=== PATIENT | male | born 1950 | race Caucasian/White ===

== ENCOUNTER 2025-05-01 18:01 | Inpatient (IN) | payer MEDICARE, SELFPAY ==
[2025-05-01] VITALS (8 sets, daily range): BP systolic 150–177; BP diastolic 65–79; PULSE 64–74; RESP 20–25; TEMP 36.8–37; O2SAT 94–100
--- NOTE | ~2025-05-01 | CT_ITS ---
CT brain wo con Ordering provider: James Vaughn MD History: 74 years Male with . slurred speech . Comparison: None. Technique: CT of the head without contrast. Radiation reduction technique utilized. The dose-length p roduct was 681 mGy-cm.3 FINDINGS: BRAIN PARENCHYMA AND CSF SPACES: Mild leukoaraiosis and diffuse cortical atrophy. Mild atheromatous d isease. No midline shift, mass effect or hemorrhage. The brain parenchyma and CSF spaces are otherwi se normal. VISUALIZED PARANASAL SINUSES: Right maxillary and frontal sinus disease. Otherwise, the Well aerated. MASTOIDS: Well aerated. BONES: The bones appear intact. SOFT TISSUES: Visualized nasopharynx is normal. Superficial soft tissues are normal. IMPRESSION: No acute intracranial findings. Reviewed, dictated and finalized at location A.
--- NOTE | ~2025-05-01 | XR_ITS ---
XR chest 1V portable Ordering provider: James Vaughn MD History: 74 years Male with . slurred speech . Comparison: January 15, 2012 FINDINGS: MEDIASTINUM: The cardiac silhouette is not enlarged. Postoperative changes in the mediastinum. LUNGS: No infiltrates, effusions or pneumothorax. OTHER: No free air under the diaphragm. Degenerative spine. IMPRESSION: No acute cardiopulmonary pathology. Reviewed, dictated and finalized at location A.
--- NOTE | 2025-05-01 18:01 | ECG_ITS ---
Test Date: 2025-05-01 18:21:18 Measurements Intervals [place] Rate: 71 P: 84 ME: 145 QRS: 63 QRSD: 117 T: 131 QT: 410 QTc: 447 Interpretive Statements SINUS RHYTHM MODERATE T-WAVE ABNORMALITY, CONSIDER LATERAL ISCHEMIA [-0.1+ mV T-WAVE IN I/aVL/V5/V6] No previous ECG available for comparison Electronically Signed On 05-01-2025 22:34:31 CDT by Isabel Johnson M.D.
[2025-05-01 18:19] LABS: Hematocrit 21.3 % (42.0-52.0); Immature Granulocyte Percent A 0.4 % (0-0.5); Lymphocytes Absolute Auto 2.74 K/mm3 (0.9-3.2); Mean Corpuscular HGB Conc 31.5 g/dl (32-36); Mean Corpuscular Hemoglobin 30.6 pg (26-34); Mean Corpuscular Volume 97.3 fl (80-100); Nucleated Red Blood Cells Absolute Auto 0.000 K/mm3 (0.0-0.012); Nucleated Red Blood Cells Perc 0.0 % (0.0-0.2); Platelet Count Result 407 k/mm3 (150-375); Red Blood Count 2.19 M/mm3 (4.6-6.20); White Blood Count 10.1 K/mm3 (4.5-10.0)
--- NOTE | 2025-05-01 18:20 | ED_ITS ---
HPI - Neuro Symptoms/Deficit General Chief Complaint: Suspected CVA Stated Complaint: TIA VS CVA History of Present Illness HPI Narrative: This is a 74-year-old male presenting to the ED as a stroke activation from EMS. The patient states that for the last week he has been feeling under the weather like he has a virus with body aches and weakness. Earlier today he developed nausea vomiting and diarrhea. Patient noticed that the vomiting and diarrhea were very dark. The patient went to take a shower prior to arrival and his heard a thump from downstairs. When she went upstairs they found him leaning against the counter. He was drooling and could not answer questions appropriately. She did not see any facial droop or unilateral weakness when prompted by 911. By time EMS arrived his symptoms had resolved he had returned to his baseline mental status. Last known normal 5:00 p.m.. No history of CVA. No use of blood thinners or anticoagulation. Patient drinks alcohol approximately 5 times per week. He states he has around 3 drinks a night. 1 or 2 manhattans/old fashioneds and then a glass of wine when he gets home. No history of alcoholic liver disease or cirrhosis. Related Data Allergies Allergy/AdvReac Type Severity Reaction Status Date / Time ampicillin Allergy Unknown Unknown Verified 11/25/24 11:17 [facility] Past Medical History Medical History CAD (coronary artery disease) Erectile dysfunction Essential (primary) hypertension Mixed hyperlipidemia Surgical History Surgical History Hx of CABG double bypass in 2001 - Dr Arriola Hx of heart bypass surgery (~1996) dbl bypass Family History Family History Mother Hypertension Father Family history of heart disease in male family member before age 55 Social History Social History Social History: Patient is , he lives with his Corazon in [place]. 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 Smoking status: Never smoker Alcohol intake: current Exam 2 Narrative: APPEARANCE: No apparent distress. Head: atraumatic. EYES: EOMI, NOSE: Atraumatic NECK: Trachea midline RESPIRATORY: No increased rate of breathing clear to auscultation CARDIOVASCULAR: RRR, no peripheral edema ABDOMINAL: Non-distended soft nontender Rectal Exam: Melanotic stool, Hemoccult positive MUSCULOSKELETAl: No obvious deformities NEURO: Alert. Cranial nerves 2-12 grossly intact. Sensation light touch, motor function cerebellar function intact for 4 extremities. Gait exam was normal. SKIN:: Warm, dry. Normal color PSYCHIATRIC: Normal affect NIH Stroke Scale/Score (NIHSS) from [facility] [facility] on 05/01/2025 All calculations should be rechecked by clinician prior to use RESULT SUMMARY: 0 points NIH Stroke Scale INPUTS: 1A: Level of consciousness ?> 0 = Alert; keenly responsive 1B: Ask month and age ?> 0 = Both questi ons right 1C: 'Blink eyes' & 'squeeze hands' ?> 0 = Performs both tasks 2: Horizontal extraocular movements ?> 0 = Normal 3: Visual plaza ?> 0 = No visual loss 4: Facial palsy ?> 0 = Normal symmetry 5A: Left arm motor drift ?> 0 = No drift for 10 seconds 5B: Right arm motor drift ?> 0 = No drif t for 10 seconds 6A: Left leg motor drift ?> 0 = No drift for 5 seconds 6B: Right leg motor drift ?> 0 = No drif t for 5 seconds 7: Limb Ataxia ?> 0 = No ataxia 8: Sensation ?> 0 = Normal; no sensory l oss 9: Language/aphasia ?> 0 = Normal; no ap hasia 10: Dysarthria ?> 0 = Normal 11: Extinction/inattention ?> 0 = No abn ormality Course Vital Signs Vital signs: Vital Signs Pulse Rate 71 05/01/25 18:16 Respiratory Rate 21 H 05/01/25 18:16 Blood Pressure 177/65 H 05/01/25 18:16 Pulse Oximetry 95 05/01/25 18:16 Pulse Rate 72 05/01/25 18:18 Respiratory Rate 25 H 05/01/25 18:18 Blood Pressure 177/65 H 05/01/25 18:18 Pulse Oximetry 94 05/01/25 18:18 Oxygen Delivery Room Air 05/01/25 18:18 MDM - Neuro Symptoms/Deficit MDM Narrative Medical decision making narrative: -Course: 74-year-old male presenting as a stroke alert from EMS. LKK 5pm. Patient has an NIH of 0 and after obtaining a thorough history and physical and I have less concern for CVA. More likely hypoperfusion/vagal response from GI bleed/losses. Patient's hemoglobin is now 6.7 from a baseline of 15.0 six months ago. Patient noted to have possible coffee-ground emesis and home and has melanotic stools on digital rectal exam. No history of anticoagulation or blood thinners. No history of liver cirrhosis although he does drink a fair amount of alcohol. Patient is being transfused [address] Morin was consulted as I am concerned for upper GI bleeding. Patient will be admitted the hospital for further evaluation. -DDX includes but is not limited to: Viral gastroenteritis, upper GI bleed, CVA/TIA, symptomatic anemia -Co-morbidities complicating care: Coronary artery disease, hypertension -Hx from independent Sources: , EMS -Independent interpretation of studies: White count 10.1. Hemoglobin 6.7. Baseline hemoglobin 15 in October this year. Metabolic panel showed BUN 42 from a baseline of around 15. Creatinine at baseline. Initial lactic 3.2. Repeat pending. CT brain unremarkable. Independent EKG interpretation: Rhythm [sinus], Rate [71], [place] -[normal], NE -[normal], QRS [narrow], QTC [normal], T waves -[negative for concerning inversions], ST Segments - [Negative for concerning elevations] Final interpretations: [Normal Sinus Rhythm] Lab Data 05/01/25 18:07 05/01/25 18:07 Labs: Lab Results 05/01/25 05/01/25 05/01/25 Range/Units 18:07 19:15 20:31 WBC 10.1 H (4.5-10.0) K/mm3 RBC 2.19 L (4.6-6.20) M/mm3 Hgb 6.7 L* (14.0-18.0) g/dL Hct 21.3 L (42.0-52.0) % MCV 97.3 (80-100) fl MCH 30.6 (26-34) pg MCHC 31.5 L (32-36) g/dl RDW 15.6 H (11.5-14.5) % Plt Count 407 H (150-375) k/mm3 MPV 10.9 H (7.4-10.4) fl Immature Gran % (Auto) 0.4 (0-0.5) % Neut % (Auto) 63.2 (45.5-73.1) % Lymph % (Auto) 27.3 (18.3-44.2) % [place] % (Auto) 8.2 (2.6-8.5) % Eos % (Auto) 0.3 (0-4.4) % Baso % (Auto) 0.6 (0.2-1.2) % Lymph # (Auto) 2.74 (0.9-3.2) K/mm3 [place] # (Auto) 0.8 H (0.1-0.6) K/mm3 Eos # (Auto) 0.0 (0-0.3) K/mm3 Baso # (Auto) 0.1 (0.0-0.1) K/mm3 Abs Immat Gran (auto) 0.04 H (0.00-0.031) K/mm3 Absolute Neuts (auto) 6.4 (1.3-6.7) K/mm3 Absolute Nucleated RBC 0.000 (0.0-0.012) K/mm3 Nucleated RBC % 0.0 (0.0-0.2) % PT 15.0 H (11.1-14.7) Seconds INR 1.2 APTT 26.1 (22.3-36.8) Seconds Sodium 139 (137-145) mmol/L Potassium 3.7 (3.4-5.0) mmol/L Chloride 106 (98-107) mmol/L Carbon Dioxide 25 (22-30) mmol/L Anion Gap 8 (4-12) mmol/L BUN 42 H (9-20) mg/dL Creatinine 1.24 (0.7-1.3) mg/dL Estim Creat Clear Calc 48 ml/min Estimated GFR 57 L (59 - ) Glucose 150 H (65-110) mg/dL Lactic Acid 3.2 H Pending (0.7-2.0) mmol/L Calcium 9.8 (8.4-10.2) mg/dL Total Bilirubin 0.5 (0.2-1.3) mg/dL AST 42 (17-59) U/L ALT 22 (6-50) U/L Alkaline Phosphatase 45 (38-126) U/L Troponin I 0.017 (0.000-0.034) ng/mL Total Protein 5.6 L (6.3-8.2) g/dL Albumin 3.0 L (3.5-5.1) g/dL Blood Type A Positive Antibody Screen Negative Crossmatch See Detail Discharge Plan Discharge Clinical Impression: Acute upper gastrointestinal bleeding, Anemia Patient Disposition: Home Condition: Stable Instructions: Antibiotic Form Patient Language: Romanian Prescriptions: No Action aspirin 81 mg tablet,delayed release (DR/EC) 81 mg PO DAILY Qty: 90 0RF tadalafil 5 mg tablet 5 mg PO DAILY PRN (Reason: sexual activity) Qty: 90 0RF ergocalciferol (vitamin D2) 1,250 mcg (50,000 unit) capsule 1,250 mcg PO WEEKLY Qty: 12 1RF lisinopril 40 mg tablet 40 mg PO DAILY Qty: 90 1RF atorvastatin 80 mg tablet 80 mg PO DAILY Qty: 90 0RF fenofibrate nanocrystallized [Tricor] 145 mg tablet 145 mg PO DAILY Qty: 90 0RF Rx Instructions: ] metoprolol tartrate 100 mg tablet 100 mg PO BID Qty: 180 0RF Follow-up/Referrals: Vanessa Ding DO [Primary Care Provider] -
[2025-05-01 18:32] LABS: Alanine Aminotransferase 22 U/L (6-50); Albumin Level 3.0 g/dL (3.5-5.1); Alkaline Phosphatase 45 U/L (38-126); Anion Gap 8 mmol/L (4-12); Aspartate Amino Transferase 42 U/L (17-59); Bilirubin,Total 0.5 mg/dL (0.2-1.3); Blood Urea Nitrogen 42 mg/dL (9-20); Calcium 9.8 mg/dL (8.4-10.2); Carbon Dioxide 25 mmol/L (22-30); Chloride 106 mmol/L (98-107); Estimated CRCL calculation 48 ml/min; Estimated Glomerular Filt Rate 57; Glucose 150 mg/dL (65-110); Potassium 3.7 mmol/L (3.4-5.0); Sodium 139 mmol/L (137-145); Total Protein 5.6 g/dL (6.3-8.2)
[2025-05-01 18:33] LABS: INR 1.2; Partial Thromboplastin Time 26.1 Seconds (22.3-36.8); Prothrombin Time 15.0 Seconds (11.1-14.7)
[2025-05-01 18:39] LABS: Hemoglobin 6.7 g/dL (14.0-18.0)
[2025-05-01 18:42] LABS: Troponin I 0.017 ng/mL (0.000-0.034)
[2025-05-01] MEDS: TUBING, BLOOD SET 1 EACH XX (21:02)
[2025-05-01] MEDS: SODIUM CHLORIDE 0.9% IV 250 ML 30 ML IV CONT (21:02)
[2025-05-02] VITALS (16 sets, daily range): BP systolic 115–204; BP diastolic 59–95; PULSE 57–78; RESP 14–20; TEMP 36.6–37.2; O2SAT 95–100; BMI 21.9
[2025-05-02] MEDS: METOPROLOL TARTRATE 50 MG TAB 100 MG PO ×3 (00:48→20:22)
--- NOTE | 2025-05-02 02:50 | P.HP_ITS ---
H&P: HPI History of Present Illness Date/Time: 05/02/25 02:00 Chief Complaint: Weakness. Narrative: This is a 74-year-old male with coronary artery disease status post CABG in 2001, hypertension, and dyslipidemia who presented to the emergency department via EMS from home for evaluation of weakness. He has been feeling under the weather for nearly a week in presumed he had some sort of virus with symptoms to include postnasal drip, occasional cough, and sinus congestion. He has been taking Zyrtec with some improvement. The last couple of days he has developed diarrhea which she describes as very dark in color. Yesterday morning he developed nausea and reports having a couple of episodes of dark, almost black colored emesis. He rested for several hours and felt a bit better and was able to take a shower however while in the shower he began to feel very weak. He then exited the shower and states that he was feeling very weak and lightheaded. heard him stumbling in the bathroom and when she entered he was leaning on the counter and he was not able to answer her questions appropriately or follow commands. She was concerned for possible stroke and called 911. Once the medics got to the home and got him in the ambulance he was feeling back to normal. There were no reports of facial droop or focal weakness. He also denies syncope, vertigo, visual changes, fever, epigastric and abdominal pain, bloating, belching, indigestion symptoms, chest pain, and shortness of breath. He takes a baby aspirin daily and denies NSAID use. He drinks approximately 3 alcoholic beverages, about 5 days a week and has 2 to 3 cups of coffee a day. He has lost about 15 lb in the last several months which has been unintentional. No history of her or peptic ulcers. He has never had a colonoscopy. No known history of liver disease. In the ED: Blood pressure is 177/65 and has been as high as 202/95. Patient states he has severe white coat hypertension and notes that his blood pressures at home are consistently in the 120s to 130s over 70s to 80s systolic at home. Labs are significant for WBC count of 10.1, hemoglobin 6.7, hematocrit 21.3, platelet 407, PT 15.0, INR 1.2, BUN 42, creatinine 1.24, glucose 150, lactic acid 3.2, total protein 5.6, albumin 3.0. Head CT and chest x-ray showed no acute findings. He was given a unit of packed red blood cells and is being admitted in this setting for close monitoring and GI consultation. Review of Systems Review of Systems: 12 systems were reviewed and are negativ e except for as per HPI. [facility] Past Medical History Medical History (Updated 05/02/25 @ 05:00 by Tiara Poon PA-C) Coronary artery disease Erectile dysfunction Essential (primary) hypertension Mixed hyperlipidemia Surgical History Surgical History (Updated 05/02/25 @ 04:54 by Tiara Poon PA-C) History of cholecystectomy History of cardiac catheterization History of coronary artery stent placement History of coronary artery bypass graft x 2 (2001) Family History Family History Mother Hypertension Father Family history of heart disease in male family member before age 55 Social History Social History (Updated 05/02/25 @ 04:55 by Tiara Poon PA-C) Social History: Surrogate medical decision maker: Corazon Mendes, spouse. Code status: Full code. Smoking status: Never smoker Second hand tobacco smoke exposure: No Alcohol intake: current Drinks per week: 15 Substance use: never Substance use type: does not use Do You Feel Safe in your Home?: Yes Lack of Transportation: No Lack of Food: Never True Current Housing: I Have Housing Concerned About Future Housing: No Difficulty Paying Gas/Electric Bills: No Difficulty Paying for Meds: No Currently Unemployed: No Education: Decline to Answer Difficulty w/ Childcare or Family Care: No Additional living arrangements comments: . Lives in [place] with his . 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 Spiritual care concerns: No Meds Home Medications and Allergies Home Medications ?Medication ?Instructions ?Recorded ?Confirmed ?Type aspirin 81 mg tablet,delayed 81 mg PO DAILY #90 tabs 01/06/20 05/02/25 Rx release lisinopril 40 mg tablet 40 mg PO DAILY #90 tabs 01/13/25 05/02/25 Rx metoprolol tartrate 100 mg tablet 100 mg PO BID #180 tabs 04/14/25 05/02/25 Rx atorvastatin 80 mg tablet 80 mg PO HS 05/02/25 05/02/25 History fenofibrate nanocrystallized 145 145 mg PO HS 05/02/25 05/02/25 History mg tablet (Tricor) Allergies Allergy/AdvReac Type Severity Reaction Status Date / Time ampicillin Allergy Unknown Unknown Verified 11/25/24 11:17 Vital Signs Vital Signs - 24 hr 05/01/25 18:16 05/01/25 18:17 05/01/25 18:18 Temperature Pulse Rate 71 74 72 Respiratory Rate 21 H 24 H 25 H Blood Pressure 177/65 H 177/65 H 177/65 H Pulse Oximetry 95 97 94 Oxygen Delivery Room Air 05/01/25 20:55 05/01/25 21:15 05/01/25 22:15 Temperature 98.4 F 98.6 F 98.3 F Pulse Rate 64 64 65 Respiratory Rate 20 24 H 25 H Blood Pressure 150/73 H 162/70 H 162/66 H Pulse Oximetry 100 98 100 Oxygen Delivery 05/01/25 23:12 05/01/25 23:50 05/02/25 00:00 Temperature 98.3 F 98.1 F Pulse Rate 65 68 78 Respiratory Rate 24 H 24 H 20 Blood Pressure 164/79 H 202/95 H Pulse Oximetry 100 100 100 Oxygen Delivery 05/02/25 00:48 Temperature Pulse Rate 78 Respiratory Rate Blood Pressure Pulse Oximetry Oxygen Delivery Exam Narrative: General: Nontoxic-appearing male sitting up in bed in no acute distress. Weight: 73.5 kg. BMI: 22.0. HEENT: PERRL, EOMI. Sclera anicteric. Oral mucosa moist. Neck: Supple. Respiratory: Lungs are clear to auscultation bilaterally. Cardiovascular: Regular rate and rhythm with S1-S2. Gastrointestinal: Abdomen is soft, nontender, and nondistended with positive bowel sounds. No guarding or rebound tenderness. Skin: Warm and dry. Extremities: No cyanosis, clubbing, or edema. Radial pulses 2+. Pedal pulses diminished. Neurological: Alert. Cranial nerves grossly intact. No gross focal deficits to casual conversation. Psychiatric: Pleasant and cooperative with normal mood and affect. Judgment and insight intact. H&P: Results Labs Labs: Short CBC 05/01/25 Range/Units 18:07 WBC 10.1 H (4.5-10.0) K/mm3 Hgb 6.7 L* (14.0-18.0) g/dL Hct 21.3 L (42.0-52.0) % Plt Count 407 H (150-375) k/mm3 BMP 05/01/25 18:07 Sodium 139 Potassium 3.7 Chloride 106 Carbon Dioxide 25 BUN 42 H Creatinine 1.24 Glucose 150 H Calcium 9.8 Cardiac Enzymes 05/01/25 Range/Units 18:07 Troponin I 0.017 (0.000-0.034) ng/mL Liver Function 05/01/25 Range/Units 18:07 Total Bilirubin 0.5 (0.2-1.3) mg/dL AST 42 (17-59) U/L ALT 22 (6-50) U/L Alkaline Phosphatase 45 (38-126) U/L Albumin 3.0 L (3.5-5.1) g/dL Impressions Head CT 05/01/25 18:32 IMPRESSION: No acute intracranial findings. Chest X-Ray 05/01/25 18:42 IMPRESSION: No acute cardiopulmonary pathology. Assessment and Plan Assessment and plan (1) Acute upper gastrointestinal bleeding: Code(s): K92.2 - Gastrointestinal hemorrhage, unspecified Status: Acute (2) Symptomatic anemia: Code(s): D64.9 - Anemia, unspecified Status: Acute (3) Near syncope: Code(s): R55 - Syncope and collapse Status: Acute (4) Essential (primary) hypertension: Code(s): I10 - Essential (primary) hypertension Status: Acute (5) Coronary artery disease: Code(s): I25.10 - Atherosclerotic heart disease of [place] coronary artery without angina pectoris Status: Acute Plan The patient presented to the emergency department for evaluation of weakness and dark emesis and stools as detailed in HPI. Labs, imaging, EKG, and all reports were personally reviewed. He has not been feeling well for approximately week and over the last 24 to 48 hours he has developed dark stools and had a couple of episodes of dark emesis as well. Presumed upper GI bleed with unclear source; he has historically not separate from GERD and denies recent symptoms of indigestion. The patient has lost approximately 15 lb unintentionally in the last couple of months which is concerning. He will be NPO after midnight for endoscopy later today. Continue pantoprazole 40 mg IV b.i.d.. He received a unit of packed red blood cells in the emergency department and a repeat hemoglobin was 8.1 and will be monitored frequently. was initially concerned for possible stroke as the patient was not answering her questions however it is likely that he was very close to having a syncopal episode and was just not perfusing well. Neither the patient's nor EMS noted any focal deficits and his neurologic exam is unremarkable today. Brain CT was also unremarkable and in my opinion there is no indication to pursue a stroke workup. Nonetheless he will be monitored on telemetry. Monitor orthostatic vital signs. His blood pressures have actually been running quite high however he states he has severe white coat hypertension that his blood pressures at home are always within normal limits. Continue antihypertensives and monitor closely. He has not had any episodes of exertional chest pain or shortness of breath. Hold aspirin for now given GI bleed and symptomatic anemia. Continue atorvastatin and beta-rachel. The rest of his home medications will be reviewed and resumed as appropriate. Findings and treatment plan were discussed with the patient. Questions were solicited and answered to satisfaction. The patient's medical management will be taken over by the hospitalist team in a.m. Quality VTE Prophylaxis VTE prophylaxis: mechanical ordered If No VTE Prophylaxis Answer both mechanical and pharmacologic: Reason no pharmacologic proph: medical contraindication (GI bleed) Hospitalist MIPS Advance Care Plan I have confirmed that the patient's Advanced Care Plan is present, code status is documented, or surrogate decision maker is listed in patient medical record.: Yes Medication Reconciliation I have utilized all available resources to obtain, update and review the patients current medications (includes all prescriptions, OTC, herbals, cannabis, and nutritional supplements).: Yes
[2025-05-02 03:21] LABS: Hematocrit 25.7 % (42.0-52.0); Hemoglobin 8.1 g/dL (14.0-18.0)
--- NOTE | 2025-05-02 04:41 | ADMGEN ---
This patient, Damien Mendes, was admitted to [facility] Surg Room 319-01 from ED with weakness and anemia with Hgb of 6.7. 1 unit of blood administered in the ED, Patient/family oriented to hospital policies and general routines including ID bracelet, bed and alarms, visiting hours, pain management, procedures, bathroom and other care routines, personal items, smoking policy, room service/diet, and visiting hours. Information on how to activate the Rapid Response Team has been discussed. Patient/Family are encouraged to report perceived risks to care and to ask questions if they do not understand what they are told or what they should do.
[2025-05-02 06:40] LABS: Hematocrit 24.7 % (42.0-52.0); Hemoglobin 7.8 g/dL (14.0-18.0); Mean Corpuscular HGB Conc 31.6 g/dl (32-36); Mean Corpuscular Hemoglobin 30.4 pg (26-34); Mean Corpuscular Volume 96.1 fl (80-100); Platelet Count Result 285 k/mm3 (150-375); Red Blood Count 2.57 M/mm3 (4.6-6.20); White Blood Count 9.9 K/mm3 (4.5-10.0)
[2025-05-02 06:59] LABS: Alanine Aminotransferase 16 U/L (6-50); Albumin Level 2.7 g/dL (3.5-5.1); Alkaline Phosphatase 40 U/L (38-126); Anion Gap 6 mmol/L (4-12); Aspartate Amino Transferase 36 U/L (17-59); Bilirubin,Total 0.8 mg/dL (0.2-1.3); Blood Urea Nitrogen 37 mg/dL (9-20); Calcium 9.1 mg/dL (8.4-10.2); Carbon Dioxide 25 mmol/L (22-30); Chloride 110 mmol/L (98-107); Estimated CRCL calculation 49 ml/min; Estimated Glomerular Filt Rate > 60; Glucose 87 mg/dL (65-110); Potassium 3.7 mmol/L (3.4-5.0); Sodium 141 mmol/L (137-145); Total Protein 5.2 g/dL (6.3-8.2)
[2025-05-02] MEDS: PANTOPRAZOLE SODIUM IV 40 MG VIAL IV PUSH ×2 (08:46→20:22)
--- NOTE | 2025-05-02 09:13 | PM.IMPN ---
Progress Note: A&P Assessment and Plan (1) Acute upper gastrointestinal bleeding: Code(s): K92.2 - Gastrointestinal hemorrhage, unspecified Status: Acute (2) Symptomatic anemia: Code(s): D64.9 - Anemia, unspecified Status: Acute (3) Near syncope: Code(s): R55 - Syncope and collapse Status: Acute (4) Essential (primary) hypertension: Code(s): I10 - Essential (primary) hypertension Status: Acute (5) Coronary artery disease: Code(s): I25.10 - Atherosclerotic heart disease of [place] coronary artery without angina pectoris Status: Acute Plan This is a 74-year-old male with coronary artery disease status post CABG in 2001, hypertension, and dyslipidemia who presented to the emergency department via EMS from home for evaluation of weakness. He has been feeling under the weather for nearly a week in presumed he had some sort of virus with symptoms to include postnasal drip, occasional cough, and sinus congestion. He has been taking Zyrtec with some improvement. The last couple of days he has developed diarrhea which she describes as very dark in color. Yesterday morning he developed nausea and reports having a couple of episodes of dark, almost black colored emesis. He rested for several hours and felt a bit better and was able to take a shower however while in the shower he began to feel very weak. He then exited the shower and states that he was feeling very weak and lightheaded. heard him stumbling in the bathroom and when she entered he was leaning on the counter and he was not able to answer her questions appropriately or follow commands. She was concerned for possible stroke and called 911. Once the medics got to the home and got him in the ambulance he was feeling back to normal. There were no reports of facial droop or focal weakness. He also denies syncope, vertigo, visual changes, fever, epigastric and abdominal pain, bloating, belching, indigestion symptoms, chest pain, and shortness of breath. He takes a baby aspirin daily and denies NSAID use. He drinks approximately 3 alcoholic beverages, about 5 days a week and has 2 to 3 cups of coffee a day. He has lost about 15 lb in the last several months which has been unintentional. No history of her or peptic ulcers. He has never had a colonoscopy. No known history of liver disease. In the ED: Blood pressure is 177/65 and has been as high as 202/95. Patient states he has severe white coat hypertension and notes that his blood pressures at home are consistently in the 120s to 130s over 70s to 80s systolic at home. Labs are significant for WBC count of 10.1, hemoglobin 6.7, hematocrit 21.3, platelet 407, PT 15.0, INR 1.2, BUN 42, creatinine 1.24, glucose 150, lactic acid 3.2, total protein 5.6, albumin 3.0. Head CT and chest x-ray showed no acute findings. He was given a unit of packed red blood cells and is being admitted in this setting for close monitoring and GI consultation. Dark stool presumably upper GI bleed on PPI b.i.d. with weight loss place patient is planned for EGD and colonoscopy on Sunday Near-syncope CT head was negative Acute blood loss. Hemoglobin down to 6.7. Baseline hemoglobin from October 2024 was 15. GI consulted for endoscopy evaluation received 1 unit of packed red blood cell. Repeat hemoglobin post transfusion was 8.1. Continue to monitor H&H Hypertension Hyperlipidemia Coronary artery disease status post CABG in 2001 DVT prophylaxis SCDs Code status full code Subjective Date/time seen: 05/02/25 09:13 Interval history: Chart reviewed. Feels okay. No lightheadedness or dizziness. Denies any abdominal pain. Review of Systems Review of Systems: All systems reviewed & are unremarkable except as noted in HPI and below Exam Narrative: General: Nontoxic-appearing male sitting up in bed in no acute distress. HEENT: PERRL, EOMI. Sclera anicteric. Oral mucosa moist. Neck: Supple. Respiratory: Lungs are clear to auscultation bilaterally. Cardiovascular: Regular rate and rhythm with S1-S2. Gastrointestinal: Abdomen is soft, nontender, and nondistended with positive bowel sounds. No guarding or rebound tenderness. Skin: Warm and dry. Extremities: No cyanosis, clubbing, or edema. Radial pulses 2+. Pedal pulses diminished. Neurological: Alert. Cranial nerves grossly intact. No gross focal deficits to casual conversation. Psychiatric: Pleasant and cooperative with normal mood and affect. Judgment and insight intact. Objective Data Vital Signs Vital Signs: Vital Signs - 24 hr 05/01/25 18:16 05/01/25 18:17 05/01/25 18:18 Temperature Pulse Rate 71 74 72 Respiratory Rate 21 H 24 H 25 H Blood Pressure 177/65 H 177/65 H 177/65 H Pulse Oximetry 95 97 94 Oxygen Delivery Room Air 05/01/25 20:55 05/01/25 21:15 05/01/25 22:15 Temperature 98.4 F 98.6 F 98.3 F Pulse Rate 64 64 65 Respiratory Rate 20 24 H 25 H Blood Pressure 150/73 H 162/70 H 162/66 H Pulse Oximetry 100 98 100 Oxygen Delivery 05/01/25 23:12 05/01/25 23:50 05/02/25 00:00 Temperature 98.3 F 98.1 F Pulse Rate 65 68 78 Respiratory Rate 24 H 24 H 20 Blood Pressure 164/79 H 202/95 H Pulse Oximetry 100 100 100 Oxygen Delivery 05/02/25 00:48 05/02/25 04:00 05/02/25 04:30 Temperature 98.2 F Pulse Rate 78 72 70 Respiratory Rate 20 Blood Pressure 186/77 H Pulse Oximetry 98 Oxygen Delivery 05/02/25 07:52 05/02/25 08:00 05/02/25 08:47 Temperature 98.9 F Pulse Rate 71 71 Respiratory Rate 20 Blood Pressure 115/59 L Pulse Oximetry 98 95 Oxygen Delivery Room Air Intake/Output Intake/Output: Intake & Output 04/29/25 04/30/25 05/01/25 05/02/25 23:59 23:59 23:59 23:59 Intake Total 600 0 Balance 600 0 Meds/Results Medications: Active Medications Generic Name Dose Route Start Last Admin Trade Name Dee Dee PRN Reason Stop Dose Admin Atorvastatin Calcium 80 mg 05/02/25 21:00 Atorvastatin 40 Mg Tablet PO HS JAH Fenofibrate 145 mg 05/02/25 21:00 Fenofibrate Nanocrystallized 145 Mg Tablet PO HS JAH Lisinopril 40 mg 05/02/25 09:00 05/02/25 08:46 Lisinopril 20 Mg Tablet PO 40 mg DAILY JAH Administration Metoprolol Tartrate 100 mg 05/02/25 09:00 05/02/25 08:47 Metoprolol Tartrate 50 Mg Tab PO 100 mg Q12HR JAH Administration Pantoprazole Sodium 40 mg 05/02/25 09:00 05/02/25 08:46 Pantoprazole Sodium Iv 40 Mg Vial IV PUSH 40 mg Q12HR JAH Administration Radiology Results: ITS Impressions Head CT 05/01/25 18:32 IMPRESSION: No acute intracranial findings. Chest X-Ray 05/01/25 18:42 IMPRESSION: No acute cardiopulmonary pathology. Labs Labs: Laboratory Results - last 24 hr 05/01/25 05/01/25 05/01/25 18:07 19:15 20:31 WBC 10.1 H RBC 2.19 L Hgb 6.7 L* Hct 21.3 L MCV 97.3 MCH 30.6 MCHC 31.5 L RDW 15.6 H Plt Count 407 H MPV 10.9 H Immature Gran % (Auto) 0.4 Neut % (Auto) 63.2 Lymph % (Auto) 27.3 [place] % (Auto) 8.2 Eos % (Auto) 0.3 Baso % (Auto) 0.6 Lymph # (Auto) 2.74 [place] # (Auto) 0.8 H Eos # (Auto) 0.0 Baso # (Auto) 0.1 Abs Immat Gran (auto) 0.04 H Absolute Neuts (auto) 6.4 Absolute Nucleated RBC 0.000 Nucleated RBC % 0.0 PT 15.0 H INR 1.2 APTT 26.1 Sodium 139 Potassium 3.7 Chloride 106 Carbon Dioxide 25 Anion Gap 8 BUN 42 H Creatinine 1.24 Estim Creat Clear Calc 48 Estimated GFR 57 L Glucose 150 H Lactic Acid 3.2 H 1.3 Calcium 9.8 Total Bilirubin 0.5 AST 42 ALT 22 Alkaline Phosphatase 45 Troponin I 0.017 Total Protein 5.6 L Albumin 3.0 L Blood Type A Positive Antibody Screen Negative Crossmatch See Detail 05/02/25 05/02/25 03:16 05:46 WBC 9.9 RBC 2.57 L Hgb 8.1 L 7.8 L Hct 25.7 L 24.7 L MCV 96.1 MCH 30.4 MCHC 31.6 L RDW 15.3 H Plt Count 285 MPV 11.2 H Immature Gran % (Auto) Neut % (Auto) Lymph % (Auto) [place] % (Auto) Eos % (Auto) Baso % (Auto) Lymph # (Auto) [place] # (Auto) Eos # (Auto) Baso # (Auto) Abs Immat Gran (auto) Absolute Neuts (auto) Absolute Nucleated RBC Nucleated RBC % PT INR APTT Sodium 141 Potassium 3.7 Chloride 110 H Carbon Dioxide 25 Anion Gap 6 BUN 37 H Creatinine 1.16 Estim Creat Clear Calc 49 Estimated GFR > 60 Glucose 87 Lactic Acid Calcium 9.1 Total Bilirubin 0.8 AST 36 ALT 16 Alkaline Phosphatase 40 Troponin I Total Protein 5.2 L Albumin 2.7 L Blood Type Antibody Screen Crossmatch
--- NOTE | 2025-05-02 10:32 | WPDGICN ---
Assessment and Plan Assessment and plan (1) Symptomatic anemia: Code(s): D64.9 - Anemia, unspecified Status: Acute Assessment and Plan: it seems that had symptoms for 3 weeks, never had colonoscopy he will need EGD to assess if ulcer or any other lesions that can explain presentation but also concerning weight loss he is agreeable to have both egd and colonoscopy, now that he is stable ok to wait until sunday he will have liquid diet today and tomorrow will start with bowel prep continue with ppi daily hold aspirin (2) Acute upper gastrointestinal bleeding: Code(s): K92.2 - Gastrointestinal hemorrhage, unspecified Status: Acute Assessment and Plan: monitor trend h/h keep hgb>7 (3) Near syncope: Code(s): R55 - Syncope and collapse Status: Acute Assessment and Plan: probably from symptomatic anemia (4) Coronary artery disease: Code(s): I25.10 - Atherosclerotic heart disease of [place] coronary artery without angina pectoris Status: Acute (5) Weight loss: Code(s): R63.4 - Abnormal weight loss Status: Acute GI Consult Note Consult date/time: 05/02/25 10:32 Reason for consult: symptomatic anemia, coffee ground emesis HPI: Damien Mendes is a 74 year old male with coronary artery disease status post CABG in 2001 on daily baby aspirin, hypertension, and dyslipidemia who presented to the emergency department via EMS from home for evaluation of weakness. He says that for last 3 weeks noted dark stools and even most recently with sinus drainage presumed had some sort of virus with symptoms to include postnasal drip, cough, and sinus congestion. Yesterday morning had new onset of coffee ground emesis, then took a shower however while in the shower he began to feel very weak and lightheaded. heard him stumbling in the bathroom, got concerned and called EMS. Denies NSAID use. He drinks approximately 3 alcoholic beverages, about 5 days a week and has 2 to 3 cups of coffee a day. He has lost about 15 lb in the last several months which has been unintentional. No history of her or peptic ulcers. He has never had a colonoscopy. No known history of liver disease. Labs are significant for WBC count of 10.1, hemoglobin 6.7 (10/2024 was normal), platelet 407, PT 15.0, INR 1.2, BUN 42, creatinine 1.24, glucose 150, lactic acid 3.2, total protein 5.6, albumin 3.0. Head CT and chest x-ray showed no acute findings. He is better after blood transfusion. He never had scopes. Review of Systems Constitutional: Constitutional: Reports weakness Eyes: Eyes: Denies photophobia ENT: Reports Normal hearing present and Reports nasal congestion Cardiovascular: Cardiovascular: Denies chest pain Respiratory: Respiratory: Reports cough Gastrointestinal: Gastrointestinal: Reports melena, Reports nausea and Reports vomiting Genitourinary: Genitourinary: Denies dysuria Musculoskeletal: Musculoskeletal: Denies neck pain Integumentary/Breasts: Skin/Breast: Denies rash Neurologic: Denies abnormal gait Psychiatric: Psychiatric: Denies behavioral changes [facility] Past Medical History Medical History (Updated 05/02/25 @ 10:37 by Ravi Singer MD) Weight loss Coronary artery disease Erectile dysfunction Essential (primary) hypertension Mixed hyperlipidemia Surgical History Surgical History (Updated 05/02/25 @ 04:54 by Tiara Poon PA-C) History of cholecystectomy History of cardiac catheterization History of coronary artery stent placement History of coronary artery bypass graft x 2 (2001) Family History Family History Mother Hypertension Father Family history of heart disease in male family member before age 55 Social History Social History (Updated 05/02/25 @ 04:55 by Tiara Poon PA-C) Social History: Surrogate medical decision maker: Corazon Mendes, spouse. Code status: Full code. Smoking status: Never smoker Second hand tobacco smoke exposure: No Alcohol intake: current Drinks per week: 15 Substance use: never Substance use type: does not use Do You Feel Safe in your Home?: Yes Lack of Transportation: No Lack of Food: Never True Current Housing: I Have Housing Concerned About Future Housing: No Difficulty Paying Gas/Electric Bills: No Difficulty Paying for Meds: No Currently Unemployed: No Education: Decline to Answer Difficulty w/ Childcare or Family Care: No Additional living arrangements comments: . Lives in [place] with his . 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 Spiritual care concerns: No Meds Home Medications and Allergies Home Medications ?Medication ?Instructions ?Recorded ?Confirmed ?Type aspirin 81 mg tablet,delayed 81 mg PO DAILY #90 tabs 01/06/20 05/02/25 Rx release lisinopril 40 mg tablet 40 mg PO DAILY #90 tabs 01/13/25 05/02/25 Rx metoprolol tartrate 100 mg tablet 100 mg PO BID #180 tabs 04/14/25 05/02/25 Rx atorvastatin 80 mg tablet 80 mg PO HS 05/02/25 05/02/25 History fenofibrate nanocrystallized 145 145 mg PO HS 05/02/25 05/02/25 History mg tablet (Tricor) Allergies Allergy/AdvReac Type Severity Reaction Status Date / Time ampicillin Allergy Unknown Unknown Verified 11/25/24 11:17 Vital Signs Vital Signs - 24 hr 05/01/25 18:16 05/01/25 18:17 05/01/25 18:18 Temperature Pulse Rate 71 74 72 Respiratory Rate 21 H 24 H 25 H Blood Pressure 177/65 H 177/65 H 177/65 H Pulse Oximetry 95 97 94 Oxygen Delivery Room Air 05/01/25 20:55 05/01/25 21:15 05/01/25 22:15 Temperature 98.4 F 98.6 F 98.3 F Pulse Rate 64 64 65 Respiratory Rate 20 24 H 25 H Blood Pressure 150/73 H 162/70 H 162/66 H Pulse Oximetry 100 98 100 Oxygen Delivery 05/01/25 23:12 05/01/25 23:50 05/02/25 00:00 Temperature 98.3 F 98.1 F Pulse Rate 65 68 78 Respiratory Rate 24 H 24 H 20 Blood Pressure 164/79 H 202/95 H Pulse Oximetry 100 100 100 Oxygen Delivery 05/02/25 00:48 05/02/25 04:00 05/02/25 04:30 Temperature 98.2 F Pulse Rate 78 72 70 Respiratory Rate 20 Blood Pressure 186/77 H Pulse Oximetry 98 Oxygen Delivery 05/02/25 07:52 05/02/25 08:00 05/02/25 08:00 Temperature 98.9 F Pulse Rate 71 68 Respiratory Rate 20 Blood Pressure 115/59 L Pulse Oximetry 98 95 Oxygen Delivery Room Air 05/02/25 08:00 05/02/25 08:00 05/02/25 08:00 Temperature Pulse Rate Respiratory Rate Blood Pressure 204/89 H 195/79 H 185/94 H Pulse Oximetry Oxygen Delivery 05/02/25 08:47 Temperature Pulse Rate 71 Respiratory Rate Blood Pressure Pulse Oximetry Oxygen Delivery Exam Const: General: comfortable and no acute distress HENMT: Face/Nose/Sinus: Normal nares present Eyes: General: appearance normal, both eyes and all related structures Neck: Neck: supple Resp: Auscultation: clear to auscultation bilaterally Cardio: Rate: regular rate Rhythm: regular rhythm GI: Inspection: non-distended GI Palp: Yes Soft to palpation and No Tenderness to palpation present (GI) Auscultation: normal bowel sounds Skin: General skin exam: no rashes or lesions noted Neuro: Speech: normal speech Motor exam (neuro): 5/5 motor strength present throughout Extrem: General: normal to inspection Psych: Mental Status: mental status grossly normal Results Labs 05/02/25 05:46 05/02/25 05:46 Labs: Short CBC 05/01/25 05/02/25 05/02/25 Range/Units 18:07 03:16 05:46 WBC 10.1 H 9.9 (4.5-10.0) K/mm3 Hgb 6.7 L* 8.1 L 7.8 L (14.0-18.0) g/dL Hct 21.3 L 25.7 L 24.7 L (42.0-52.0) % Plt Count 407 H 285 (150-375) k/mm3 BMP 05/01/25 05/02/25 18:07 05:46 Sodium 139 141 Potassium 3.7 3.7 Chloride 106 110 H Carbon Dioxide 25 25 BUN 42 H 37 H Creatinine 1.24 1.16 Glucose 150 H 87 Calcium 9.8 9.1 Cardiac Enzymes 05/01/25 Range/Units 18:07 Troponin I 0.017 (0.000-0.034) ng/mL Liver Function 05/01/25 05/02/25 Range/Units 18:07 05:46 Total Bilirubin 0.5 0.8 (0.2-1.3) mg/dL AST 42 36 (17-59) U/L ALT 22 16 (6-50) U/L Alkaline Phosphatase 45 40 (38-126) U/L Albumin 3.0 L 2.7 L (3.5-5.1) g/dL
[2025-05-02 15:02] LABS: Hematocrit 26.1 % (42.0-52.0); Hemoglobin 8.3 g/dL (14.0-18.0)
[2025-05-02] MEDS: ATORVASTATIN 40 MG TABLET 80 MG PO (20:22)
[2025-05-02] MEDS: FENOFIBRATE NANOCRYSTALLIZED 145 MG TABLET PO (20:22)
[2025-05-03] VITALS (9 sets, daily range): BP systolic 144–195; BP diastolic 60–89; PULSE 52–79; RESP 14–20; TEMP 36.3–36.7; O2SAT 96–99
--- NOTE | 2025-05-03 03:00 | PC.NURSE ---
BP been elevated around 160's-180's , pt stated that this is his baseline at home! MILLING MACHINIST Tiara was notified, will keep monitoring and notify again if BP > 200.
[2025-05-03 06:46] LABS: Hematocrit 24.2 % (42.0-52.0); Hemoglobin 7.7 g/dL (14.0-18.0); Immature Granulocyte Percent A 0.7 % (0-0.5); Lymphocytes Absolute Auto 1.78 K/mm3 (0.9-3.2); Mean Corpuscular HGB Conc 31.8 g/dl (32-36); Mean Corpuscular Hemoglobin 30.8 pg (26-34); Mean Corpuscular Volume 96.8 fl (80-100); Nucleated Red Blood Cells Absolute Auto 0.000 K/mm3 (0.0-0.012); Nucleated Red Blood Cells Perc 0.0 % (0.0-0.2); Platelet Count Result 277 k/mm3 (150-375); Red Blood Count 2.50 M/mm3 (4.6-6.20); White Blood Count 9.8 K/mm3 (4.5-10.0)
[2025-05-03 07:06] LABS: Alanine Aminotransferase 16 U/L (6-50); Albumin Level 2.6 g/dL (3.5-5.1); Alkaline Phosphatase 39 U/L (38-126); Anion Gap 4 mmol/L (4-12); Aspartate Amino Transferase 38 U/L (17-59); Bilirubin,Total 0.7 mg/dL (0.2-1.3); Blood Urea Nitrogen 23 mg/dL (9-20); Calcium 9.0 mg/dL (8.4-10.2); Carbon Dioxide 26 mmol/L (22-30); Chloride 110 mmol/L (98-107); Estimated CRCL calculation 50 ml/min; Estimated Glomerular Filt Rate > 60; Glucose 87 mg/dL (65-110); Magnesium 1.8 mg/dL (1.6-2.3); Potassium 4.0 mmol/L (3.4-5.0); Sodium 140 mmol/L (137-145); Total Protein 5.0 g/dL (6.3-8.2)
[2025-05-03] MEDS: PANTOPRAZOLE SODIUM IV 40 MG VIAL IV PUSH (08:34)
[2025-05-03] MEDS: METOPROLOL TARTRATE 50 MG TAB 100 MG PO ×2 (08:35→21:51)
--- NOTE | 2025-05-03 11:09 | P.PNGI_ITS ---
Progress Note: A&P Assessment and Plan (1) Acute upper gastrointestinal bleeding: Code(s): K92.2 - Gastrointestinal hemorrhage, unspecified Status: Acute Assessment and Plan: egd tomorrow on ppi for now no more episodes (2) Symptomatic anemia: Code(s): D64.9 - Anemia, unspecified Status: Acute Assessment and Plan: never had colonoscopy will do egd and colonoscopy tomorrow, start bowel prep today (3) CAD (coronary artery disease): Qualifiers: Coronary Disease-Associated Artery/Lesion type: bypass graft [place] vs. transplanted heart: [place] heart Associated angina: without angina Qualified Code(s): I25.810 - Atherosclerosis of coronary artery bypass graft(s) without angina pectoris Code(s): I25.10 - Atherosclerotic heart disease of [place] coronary artery without angina pectoris Status: Acute (4) Near syncope: Code(s): R55 - Syncope and collapse Status: Acute Subjective Date/time seen: 05/03/25 11:09 Interval history: no more bleeding doing well, denies nausea or abdominal pain family member at bedside Review of Systems Review of Systems: All systems reviewed & are unremarkable except as noted in HPI and below Exam Const: General: comfortable and no acute distress HENMT: Face/Nose/Sinus: Normal nares present Eyes: General: appearance normal, both eyes and all related structures Neck: Neck: supple Resp: Auscultation: clear to auscultation bilaterally Cardio: Rate: regular rate Rhythm: regular rhythm GI: Inspection: non-distended GI Palp: Yes Soft to palpation and No Tenderness to palpation present (GI) Auscultation: normal bowel sounds Skin: General skin exam: no rashes or lesions noted Neuro: Speech: normal speech Motor exam (neuro): 5/5 motor strength present throughout Extrem: General: normal to inspection Psych: Mental Status: mental status grossly normal Objective Data Vital Signs Vital Signs: Vital Signs - 24 hr 05/02/25 12:00 05/02/25 12:00 05/02/25 13:00 Temperature 98.8 F Pulse Rate 64 65 Respiratory Rate 20 Blood Pressure 161/73 H Pulse Oximetry 100 95 Oxygen Delivery Room Air 05/02/25 14:00 05/02/25 16:00 05/02/25 16:00 Temperature 98.8 F 98.4 F Pulse Rate 64 69 57 L Respiratory Rate 20 20 Blood Pressure 167/73 H 172/68 H Pulse Oximetry 100 99 Oxygen Delivery 05/02/25 20:00 05/02/25 20:00 05/02/25 20:00 Temperature 98.4 F 98.5 F Pulse Rate 62 73 71 Respiratory Rate 16 19 14 Blood Pressure 180/71 H 173/69 H Pulse Oximetry 97 98 97 Oxygen Delivery Room Air 05/02/25 20:00 05/02/25 20:22 05/02/25 22:47 Temperature 97.8 F Pulse Rate 66 70 65 Respiratory Rate 16 Blood Pressure 177/73 H Pulse Oximetry 98 Oxygen Delivery 05/02/25 22:49 05/02/25 23:47 05/03/25 00:00 Temperature 97.8 F 98.3 F Pulse Rate 75 71 63 Respiratory Rate 18 14 Blood Pressure 164/88 H 186/72 H Pulse Oximetry 96 97 Oxygen Delivery 05/03/25 04:00 05/03/25 04:00 Temperature 98.0 F Pulse Rate 64 61 Respiratory Rate 14 Blood Pressure 195/69 H Pulse Oximetry 98 Oxygen Delivery Intake/Output Intake/Output: Intake & Output 04/30/25 05/01/25 05/02/25 05/03/25 23:59 23:59 23:59 23:59 Intake Total 600 240 790 Balance 600 240 790 Meds/Results Medications: Active Medications Generic Name Dose Route Start Last Admin Trade Name Freq PRN Reason Stop Dose Admin Atorvastatin Calcium 80 mg 05/02/25 21:00 05/02/25 20:22 Atorvastatin 40 Mg Tablet PO 80 mg HS JAH Administration Fenofibrate 145 mg 05/02/25 21:00 05/02/25 20:22 Fenofibrate Nanocrystallized 145 Mg Tablet PO 145 mg HS JAH Administration Lisinopril 40 mg 05/02/25 09:00 05/03/25 08:35 Lisinopril 20 Mg Tablet PO 40 mg DAILY JAH Administration Metoprolol Tartrate 100 mg 05/02/25 09:00 05/03/25 08:35 Metoprolol Tartrate 50 Mg Tab PO 100 mg Q12HR JAH Administration Pantoprazole Sodium 40 mg 05/02/25 09:00 05/03/25 08:34 Pantoprazole Sodium Iv 40 Mg Vial IV PUSH 40 mg Q12HR JAH Administration Radiology Results: ITS Impressions Head CT 05/01/25 18:32 IMPRESSION: No acute intracranial findings. Chest X-Ray 05/01/25 18:42 IMPRESSION: No acute cardiopulmonary pathology. Labs Labs: Laboratory Results - last 24 hr 05/02/25 05/03/25 14:56 05:56 WBC 9.8 RBC 2.50 L Hgb 8.3 L 7.7 L Hct 26.1 L 24.2 L MCV 96.8 MCH 30.8 MCHC 31.8 L RDW 16.0 H Plt Count 277 MPV 11.2 H Immature Gran % (Auto) 0.7 H Neut % (Auto) 71.3 Lymph % (Auto) 18.[address] [place] % (Auto) 7.6 Eos % (Auto) 1.8 Baso % (Auto) 0.4 Lymph # (Auto) 1.78 [place] # (Auto) 0.7 H Eos # (Auto) 0.2 Baso # (Auto) 0.0 Abs Immat Gran (auto) 0.07 H Absolute Neuts (auto) 7.0 H Absolute Nucleated RBC 0.000 Nucleated RBC % 0.0 Sodium 140 Potassium 4.0 Chloride 110 H Carbon Dioxide 26 Anion Gap 4 BUN 23 H D Creatinine 1.14 Estim Creat Clear Calc 50 Estimated GFR > 60 Glucose 87 Calcium 9.0 Magnesium 1.8 Total Bilirubin 0.7 AST 38 ALT 16 Alkaline Phosphatase 39 Total Protein 5.0 L Albumin 2.6 L
--- NOTE | 2025-05-03 12:08 | PM.IMPN ---
Progress Note: A&P Assessment and Plan (1) Acute upper gastrointestinal bleeding: Code(s): K92.2 - Gastrointestinal hemorrhage, unspecified Status: Acute (2) Symptomatic anemia: Code(s): D64.9 - Anemia, unspecified Status: Acute (3) Near syncope: Code(s): R55 - Syncope and collapse Status: Acute (4) Essential (primary) hypertension: Code(s): I10 - Essential (primary) hypertension Status: Acute (5) Coronary artery disease: Code(s): I25.10 - Atherosclerotic heart disease of [place] coronary artery without angina pectoris Status: Acute Plan This is a 74-year-old male with coronary artery disease status post CABG in 2001, hypertension, and dyslipidemia who presented to the emergency department via EMS from home for evaluation of weakness. He has been feeling under the weather for nearly a week in presumed he had some sort of virus with symptoms to include postnasal drip, occasional cough, and sinus congestion. He has been taking Zyrtec with some improvement. The last couple of days he has developed diarrhea which she describes as very dark in color. Yesterday morning he developed nausea and reports having a couple of episodes of dark, almost black colored emesis. He rested for several hours and felt a bit better and was able to take a shower however while in the shower he began to feel very weak. He then exited the shower and states that he was feeling very weak and lightheaded. heard him stumbling in the bathroom and when she entered he was leaning on the counter and he was not able to answer her questions appropriately or follow commands. She was concerned for possible stroke and called 911. Once the medics got to the home and got him in the ambulance he was feeling back to normal. There were no reports of facial droop or focal weakness. He also denies syncope, vertigo, visual changes, fever, epigastric and abdominal pain, bloating, belching, indigestion symptoms, chest pain, and shortness of breath. He takes a baby aspirin daily and denies NSAID use. He drinks approximately 3 alcoholic beverages, about 5 days a week and has 2 to 3 cups of coffee a day. He has lost about 15 lb in the last several months which has been unintentional. No history of her or peptic ulcers. He has never had a colonoscopy. No known history of liver disease. In the ED: Blood pressure is 177/65 and has been as high as 202/95. Patient states he has severe white coat hypertension and notes that his blood pressures at home are consistently in the 120s to 130s over 70s to 80s systolic at home. Labs are significant for WBC count of 10.1, hemoglobin 6.7, hematocrit 21.3, platelet 407, PT 15.0, INR 1.2, BUN 42, creatinine 1.24, glucose 150, lactic acid 3.2, total protein 5.6, albumin 3.0. Head CT and chest x-ray showed no acute findings. He was given a unit of packed red blood cells and is being admitted in this setting for close monitoring and GI consultation. Dark stool presumably upper GI bleed on PPI b.i.d. with weight loss place patient is planned for EGD and colonoscopy on Sunday H&H remained stable Near-syncope CT head was negative Acute blood loss. Hemoglobin down to 6.7. Baseline hemoglobin from October 2024 was 15. GI consulted for endoscopy evaluation received 1 unit of packed red blood cell. Repeat hemoglobin post transfusion was 8.1. H&H remains stable Continue to monitor H&H Hypertension Hyperlipidemia Coronary artery disease status post CABG in 2001 DVT prophylaxis SCDs Code status full code Subjective Date/time seen: 05/03/25 12:08 Interval history: No overnight events no new complaints no pain. No nausea vomiting. Review of Systems Review of Systems: All systems reviewed & are unremarkable except as noted in HPI and below Exam Narrative: General: Nontoxic-appearing male sitting up in bed in no acute distress. HEENT: PERRL, EOMI. Sclera anicteric. Oral mucosa moist. Neck: Supple. Respiratory: Lungs are clear to auscultation bilaterally. Cardiovascular: Regular rate and rhythm with S1-S2. Gastrointestinal: Abdomen is soft, nontender, and nondistended with positive bowel sounds. No guarding or rebound tenderness. Skin: Warm and dry. Extremities: No cyanosis, clubbing, or edema. Radial pulses 2+. Pedal pulses diminished. Neurological: Alert. Cranial nerves grossly intact. No gross focal deficits to casual conversation. Psychiatric: Pleasant and cooperative with normal mood and affect. Judgment and insight intact. Objective Data Vital Signs Vital Signs: Vital Signs - 24 hr 05/02/25 13:00 05/02/25 14:00 05/02/25 16:00 Temperature 98.8 F 98.4 F Pulse Rate 64 69 Respiratory Rate 20 20 Blood Pressure 167/73 H 172/68 H Pulse Oximetry 95 100 99 Oxygen Delivery Room Air 05/02/25 16:00 05/02/25 20:00 05/02/25 20:00 Temperature 98.4 F 98.5 F Pulse Rate 57 L 62 73 Respiratory Rate 16 19 Blood Pressure 180/71 H 173/69 H Pulse Oximetry 97 98 Oxygen Delivery 05/02/25 20:00 05/02/25 20:00 05/02/25 20:22 Temperature Pulse Rate 71 66 70 Respiratory Rate 14 Blood Pressure Pulse Oximetry 97 Oxygen Delivery Room Air 05/02/25 22:47 05/02/25 22:49 05/02/25 23:47 Temperature 97.8 F 97.8 F 98.3 F Pulse Rate 65 75 71 Respiratory Rate 16 18 14 Blood Pressure 177/73 H 164/88 H 186/72 H Pulse Oximetry 98 96 97 Oxygen Delivery 05/03/25 00:00 05/03/25 04:00 05/03/25 04:00 Temperature 98.0 F Pulse Rate 63 64 61 Respiratory Rate 14 Blood Pressure 195/69 H Pulse Oximetry 98 Oxygen Delivery Intake/Output Intake/Output: Intake & Output 04/30/25 05/01/25 05/02/25 05/03/25 23:59 23:59 23:59 23:59 Intake Total 600 240 790 Balance 600 240 790 Meds/Results Medications: Active Medications Generic Name Dose Route Start Last Admin Trade Name Freq PRN Reason Stop Dose Admin Atorvastatin Calcium 80 mg 05/02/25 21:00 05/02/25 20:22 Atorvastatin 40 Mg Tablet PO 80 mg HS JAH Administration Bisacodyl 10 mg 05/03/25 16:00 Bisacodyl 5 Mg Tablet Ec PO 05/03/25 16:01 ONCE ONE Fenofibrate 145 mg 05/02/25 21:00 05/02/25 20:22 Fenofibrate Nanocrystallized 145 Mg Tablet PO 145 mg HS JAH Administration Lisinopril 40 mg 05/02/25 09:00 05/03/25 08:35 Lisinopril 20 Mg Tablet PO 40 mg DAILY JAH Administration Magnesium Citrate 300 ml 05/04/25 01:00 Magnesium Citrate 300 Ml Btl PO 05/04/25 01:01 ONCE ONE Metoprolol Tartrate 100 mg 05/02/25 09:00 05/03/25 08:35 Metoprolol Tartrate 50 Mg Tab PO 100 mg Q12HR JAH Administration Pantoprazole Sodium 40 mg 05/02/25 09:00 05/03/25 08:34 Pantoprazole Sodium Iv 40 Mg Vial IV PUSH 40 mg Q12HR JAH Administration Polyethylene Glycol 238 gm 05/03/25 16:00 Polyethylene Glycol 3350 238 Gm Bottle PO 05/03/25 16:01 ONCE ONE Radiology Results: ITS Impressions Head CT 05/01/25 18:32 IMPRESSION: No acute intracranial findings. Chest X-Ray 05/01/25 18:42 IMPRESSION: No acute cardiopulmonary pathology. Labs Labs: Laboratory Results - last 24 hr 05/02/25 05/03/25 14:56 05:56 WBC 9.8 RBC 2.50 L Hgb 8.3 L 7.7 L Hct 26.1 L 24.2 L MCV 96.8 MCH 30.8 MCHC 31.8 L RDW 16.0 H Plt Count 277 MPV 11.2 H Immature Gran % (Auto) 0.7 H Neut % (Auto) 71.3 Lymph % (Auto) 18.2 [place] % (Auto) 7.6 Eos % (Auto) 1.8 Baso % (Auto) 0.4 Lymph # (Auto) 1.78 [place] # (Auto) 0.7 H Eos # (Auto) 0.2 Baso # (Auto) 0.0 Abs Immat Gran (auto) 0.07 H Absolute Neuts (auto) 7.0 H Absolute Nucleated RBC 0.000 Nucleated RBC % 0.0 Sodium 140 Potassium 4.0 Chloride 110 H Carbon Dioxide 26 Anion Gap 4 BUN 23 H D Creatinine 1.14 Estim Creat Clear Calc 50 Estimated GFR > 60 Glucose 87 Calcium 9.0 Magnesium 1.8 Total Bilirubin 0.7 AST 38 ALT 16 Alkaline Phosphatase 39 Total Protein 5.0 L Albumin 2.6 L
[2025-05-03] MEDS: BISACODYL 5 MG TABLET EC 10 MG PO (16:44)
[2025-05-03] MEDS: ATORVASTATIN 40 MG TABLET 80 MG PO (21:51)
[2025-05-03] MEDS: FENOFIBRATE NANOCRYSTALLIZED 145 MG TABLET PO (21:51)
[2025-05-04] VITALS (15 sets, daily range): BP systolic 103–186; BP diastolic 59–82; PULSE 49–79; RESP 18–25; TEMP 36.2–36.8; O2SAT 95–100; BMI 20.4
[2025-05-04] MEDS: MAGNESIUM CITRATE 300 ML BTL PO (00:01)
[2025-05-04] MEDS: PANTOPRAZOLE SODIUM IV 40 MG VIAL IV PUSH ×2 (00:01→09:09)
[2025-05-04 08:13] LABS: Hematocrit 24.6 % (42.0-52.0); Hemoglobin 7.9 g/dL (14.0-18.0); Immature Granulocyte Percent A 0.3 % (0-0.5); Lymphocytes Absolute Auto 1.27 K/mm3 (0.9-3.2); Mean Corpuscular HGB Conc 32.1 g/dl (32-36); Mean Corpuscular Hemoglobin 31.1 pg (26-34); Mean Corpuscular Volume 96.9 fl (80-100); Nucleated Red Blood Cells Absolute Auto 0.000 K/mm3 (0.0-0.012); Nucleated Red Blood Cells Perc 0.0 % (0.0-0.2); Platelet Count Result 276 k/mm3 (150-375); Red Blood Count 2.54 M/mm3 (4.6-6.20); White Blood Count 5.9 K/mm3 (4.5-10.0)
[2025-05-04 08:36] LABS: Alanine Aminotransferase 17 U/L (6-50); Albumin Level 2.6 g/dL (3.5-5.1); Alkaline Phosphatase 37 U/L (38-126); Anion Gap 2 mmol/L (4-12); Aspartate Amino Transferase 44 U/L (17-59); Bilirubin,Total 0.8 mg/dL (0.2-1.3); Blood Urea Nitrogen 15 mg/dL (9-20); Calcium 9.3 mg/dL (8.4-10.2); Carbon Dioxide 26 mmol/L (22-30); Chloride 109 mmol/L (98-107); Estimated CRCL calculation 49 ml/min; Estimated Glomerular Filt Rate > 60; Glucose 86 mg/dL (65-110); Magnesium 2.1 mg/dL (1.6-2.3); Potassium 4.6 mmol/L (3.4-5.0); Sodium 137 mmol/L (137-145); Total Protein 5.0 g/dL (6.3-8.2)
[2025-05-04] MEDS: METOPROLOL TARTRATE 50 MG TAB 100 MG PO (08:55)
--- NOTE | 2025-05-04 12:39 | P.PNIM_ITS ---
Progress Note: A&P Assessment and Plan (1) Acute upper gastrointestinal bleeding: Code(s): K92.2 - Gastrointestinal hemorrhage, unspecified Status: Acute (2) Symptomatic anemia: Code(s): D64.9 - Anemia, unspecified Status: Acute (3) Near syncope: Code(s): R55 - Syncope and collapse Status: Acute (4) Essential (primary) hypertension: Code(s): I10 - Essential (primary) hypertension Status: Acute (5) Coronary artery disease: Code(s): I25.10 - Atherosclerotic heart disease of [place] coronary artery without angina pectoris Status: Acute Plan This is a 74-year-old male with coronary artery disease status post CABG in 2001, hypertension, and dyslipidemia who presented to the emergency department via EMS from home for evaluation of weakness. He has been feeling under the weather for nearly a week in presumed he had some sort of virus with symptoms to include postnasal drip, occasional cough, and sinus congestion. He has been taking Zyrtec with some improvement. The last couple of days he has developed diarrhea which she describes as very dark in color. Yesterday morning he devel oped nausea and reports having a couple of episodes of dark, almost black colored emesis. He rested for several hours and felt a bit better and was able to take a shower however while in the shower he began to feel very weak. He then exited the shower and states that he was feeling very weak and lightheaded. heard him stumbling in the bathroom and when she entered he was leaning on the counter and he was not able to answer her questions appropriately or follow commands. She was concerned for possible stroke and called 911. Once the medics got to the home and got him in the ambulance he was feeling back to normal. There were no reports of facial droop or focal weakness. He also denies syncope, vertigo, visual changes, fever, epigastric and abdominal pain, bloating, belching, indigestion symptoms, chest pain, and shortness of breath. He takes a baby aspirin daily and denies NSAID use. He drinks approximately 3 alcoholic beverages, about 5 days a week and has 2 to 3 cups of coffee a day. He has lost about 15 lb in the last several months which has been unintentional. No history of her or peptic ulcers. He has never had a colonoscopy. No known history of liver disease. In the ED: Blood pressure is 177/65 and has been as high as 202/95. Patient states he has severe white coat hypertension and notes that his blood pressures at home are consistently in the 120s to 130s over 70s to 80s systolic at home. Labs are significant for WBC count of 10.1, hemoglobin 6.7, hematocrit 21.3, platelet 407, PT 15.0, INR 1.2, BUN 42, creatinine 1.24, glucose 150, lactic acid 3.2, total protein 5.6, albumin 3.0. Head CT and chest x-ray showed no acute findings. He was given a unit of packed red blood cells and is being admitted in this setting for close monitoring and GI consultation. Dark stool presumably upper GI bleed on PPI b.i.d. with weight loss place patient is planned for EGD and colonoscopy scheduled later today H&H remained stable Near-syncope CT head was negative Acute blood loss. Hemoglobin down to 6.7. Baseline hemoglobin from October 2024 was 15. GI consulted for endoscopy evaluation received 1 unit of packed red blood cell. Repeat hemoglobin post transfusion was 8.1. H&H remains stable Continue to monitor H&H Hypertension Hyperlipidemia Coronary artery disease status post CABG in 2001 DVT prophylaxis SCDs Code status full code Subjective Date/time seen: 05/04/25 12:39 Interval history: No new complaints. H&H stable. Waiting for EGD colonoscopy this afternoon. Review of Systems Review of Systems: All systems reviewed & are unremarkable except as noted in HPI and below Exam Narrative: General: Nontoxic-appearing male sitting up in bed in no acute distress. HEENT: PERRL, EOMI. Sclera anicteric. Oral mucosa moist. Neck: Supple. Respiratory: Lungs are clear to auscultation bilaterally. Cardiovascular: Regular rate and rhythm with S1-S2. Gastrointestinal: Abdomen is soft, nontender, and nondistended with positive bowel sounds. No guarding or rebound tenderness. Skin: Warm and dry. Extremities: No cyanosis, clubbing, or edema. Radial pulses 2+. Pedal pulses diminished. Neurological: Alert. Cranial nerves grossly intact. No gross focal deficits to casual conversation. Psychiatric: Pleasant and cooperative with normal mood and affect. Judgment and insight intact. Objective Data Vital Signs Vital Signs: Vital Signs - 24 hr 05/03/25 14:00 05/03/25 16:00 05/03/25 20:00 Temperature 97.3 F L Pulse Rate 56 L 56 L Respiratory Rate 18 Blood Pressure 144/60 H 176/89 H Pulse Oximetry 99 Oxygen Delivery Fraction of Inspired Oxygen 05/03/25 20:00 05/03/25 20:00 05/03/25 21:40 Temperature 97.6 F Pulse Rate 77 52 L 52 L Respiratory Rate 18 20 Blood Pressure 176/89 H Pulse Oximetry 99 96 Oxygen Delivery Room Air Fraction of Inspired Oxygen 21 05/03/25 21:51 05/03/25 21:55 05/04/25 00:00 Temperature Pulse Rate 79 62 Respiratory Rate Blood Pressure Pulse Oximetry Oxygen Delivery Room Air Fraction of Inspired Oxygen 05/04/25 03:05 05/04/25 06:00 05/04/25 08:00 Temperature 97.2 F L 97.6 F Pulse Rate 68 63 60 Respiratory Rate 18 18 Blood Pressure 186/77 H 153/70 H Pulse Oximetry 100 97 Oxygen Delivery Fraction of Inspired Oxygen 05/04/25 08:00 05/04/25 08:30 05/04/25 08:45 Temperature Pulse Rate 55 L 60 79 Respiratory Rate Blood Pressure 179/68 H 153/70 H 166/72 H Pulse Oximetry 98 97 98 Oxygen Delivery Fraction of Inspired Oxygen 05/04/25 08:55 05/04/25 08:55 05/04/25 11:02 Temperature Pulse Rate 59 L 69 Respiratory Rate Blood Pressure Pulse Oximetry Oxygen Delivery Room Air Fraction of Inspired Oxygen 05/04/25 12:00 Temperature Pulse Rate 56 L Respiratory Rate Blood Pressure Pulse Oximetry Oxygen Delivery Fraction of Inspired Oxygen Intake/Output Intake/Output: Intake & Output 05/01/25 05/02/25 05/03/25 05/04/25 23:59 23:59 23:59 23:59 Intake Total 469 891 3134 Balance 232 688 0656 Meds/Results Medications: Active Medications Generic Name Dose Route Start Last Admin Trade Name Freq PRN Reason Stop Dose Admin Atorvastatin Calcium 80 mg 05/02/25 21:00 05/03/25 21:51 Atorvastatin 40 Mg Tablet PO 80 mg HS JAH Administration Fenofibrate 145 mg 05/02/25 21:00 05/03/25 21:51 Fenofibrate Nanocrystallized 145 Mg Tablet PO 145 mg HS JAH Administration Lisinopril 40 mg 05/02/25 09:00 05/03/25 08:35 Lisinopril 20 Mg Tablet PO 40 mg DAILY JAH Administration Metoprolol Tartrate 100 mg 05/02/25 09:00 05/04/25 08:55 Metoprolol Tartrate 50 Mg Tab PO 100 mg Q12HR JAH Administration Pantoprazole Sodium 40 mg 05/02/25 09:00 05/04/25 09:09 Pantoprazole Sodium Iv 40 Mg Vial IV PUSH 40 mg Q12HR JAH Administration Radiology Results: ITS Impressions Head CT 05/01/25 18:32 IMPRESSION: No acute intracranial findings. Chest X-Ray 05/01/25 18:42 IMPRESSION: No acute cardiopulmonary pathology. Labs Labs: Laboratory Results - last 24 hr 05/04/25 07:50 WBC 5.9 RBC 2.54 L Hgb 7.9 L Hct 24.6 L MCV 96.9 MCH 31.1 MCHC 32.1 RDW 16.2 H Plt Count 276 MPV 11.1 H Immature Gran % (Auto) 0.3 Neut % (Auto) 66.5 Lymph % (Auto) 21.4 [place] % (Auto) 8.8 H Eos % (Auto) 2.5 Baso % (Auto) 0.5 Lymph # (Auto) 1.27 [place] # (Auto) 0.5 Eos # (Auto) 0.2 Baso # (Auto) 0.0 Abs Immat Gran (auto) 0.02 Absolute Neuts (auto) 4.0 Absolute Nucleated RBC 0.000 Nucleated RBC % 0.0 Sodium 137 Potassium 4.6 Chloride 109 H Carbon Dioxide 26 Anion Gap 2 L BUN 15 D Creatinine 1.13 Estim Creat Clear Calc 49 Estimated GFR > 60 Glucose 86 Calcium 9.3 Magnesium 2.1 Total Bilirubin 0.8 AST 44 ALT 17 Alkaline Phosphatase 37 L Total Protein 5.0 L Albumin 2.6 L
--- NOTE | 2025-05-04 13:30 | PC.NURSE ---
To GI Lab via wheelchair.
[2025-05-04] MEDS: LACTATED RINGERS 1,000 ML 150 ML IV CONT (13:56)
--- NOTE | 2025-05-04 14:36 | S_PTH ---
PATIENT: Damien Mendes LOC: [id number] U#:[id number] AGE/SX: 74/M ROOM: 319 RE05/01/[address]: Fortunato Suero MD : 1950 BED: 01 DIS: 05/04/2025 SPEC #: [id number] RECD: 05/05/25 08:17 STATUS: ABDIEL REQ #: [id number] THIERNO: 05/04/25 14:[address]: Ravi Singer DEPT: [facility] Surgical RECD BY: Mita Kirkpatrick ENTERED: 05/05/25 08:18 SP TYPE: Surgical OTHR DR: MD Vanessa Vivar, Tissues: A - Gastric Biopsy B - Colon Polypectomy Procedures: Hematoxylin and Eosin Stain Gross and Microscopic Level 4 H.Pylori
--- NOTE | 2025-05-04 14:37 | SUR.OPER ---
EGD start 1429 end 1433, Colonoscopy start 1439
--- NOTE | 2025-05-04 15:20 | PC.NURSE ---
Back from GI Lab via wheelchair.
--- NOTE | 2025-05-04 16:06 | PM.DS ---
DS: Admitting Diagnosis Discharge Date 05/04/2025 Admitting Diagnosis Anemia DS: Discharge Diagnosis Discharge Diagnosis (1) Acute upper gastrointestinal bleeding: Code(s): K92.2 - Gastrointestinal hemorrhage, unspecified Status: Acute (2) Symptomatic anemia: Code(s): D64.9 - Anemia, unspecified Status: Acute (3) Near syncope: Code(s): R55 - Syncope and collapse Status: Acute (4) Essential (primary) hypertension: Code(s): I10 - Essential (primary) hypertension Status: Acute (5) Coronary artery disease: Code(s): I25.10 - Atherosclerotic heart disease of [place] coronary artery without angina pectoris Status: Acute DS: Summary Hospital Course Hospital Course: This is a 74-year-old male with coronary artery disease status post CABG in 2001, hypertension, and dyslipidemia who presented to the emergency department via EMS from home for evaluation of weakness. He has been feeling under the weather for nearly a week in presumed he had some sort of virus with symptoms to include postnasal drip, occasional cough, and sinus congestion. He has been taking Zyrtec with some improvement. The last couple of days he has developed diarrhea which she describes as very dark in color. Yesterday morning he developed nausea and reports having a couple of episodes of dark, almost black colored emesis. He rested for several hours and felt a bit better and was able to take a shower however while in the shower he began to feel very weak. He then exited the shower and states that he was feeling very weak and lightheaded. heard him stumbling in the bathroom and when she entered he was leaning on the counter and he was not able to answer her questions appropriately or follow commands. She was concerned for possible stroke and called 911. Once the medics got to the home and got him in the ambulance he was feeling back to normal. There were no reports of facial droop or focal weakness. He also denies syncope, vertigo, visual changes, fever, epigastric and abdominal pain, bloating, belching, indigestion symptoms, chest pain, and shortness of breath. He takes a baby aspirin daily and denies NSAID use. He drinks approximately 3 alcoholic beverages, about 5 days a week and has 2 to 3 cups of coffee a day. He has lost about 15 lb in the last several months which has been unintentional. No history of her or peptic ulcers. He has never had a colonoscopy. No known history of liver disease. In the ED: Blood pressure is 177/65 and has been as high as 202/95. Patient states he has severe white coat hypertension and notes that his blood pressures at home are consistently in the 120s to 130s over 70s to 80s systolic at home. Labs are significant for WBC count of 10.1, hemoglobin 6.7, hematocrit 21.3, platelet 407, PT 15.0, INR 1.2, BUN 42, creatinine 1.24, glucose 150, lactic acid 3.2, total protein 5.6, albumin 3.0. Head CT and chest x-ray showed no acute findings. He was given a unit of packed red blood cells and is being admitted in this setting for close monitoring and GI consultation. Dark stool presumably upper GI bleed on PPI b.i.d. with weight loss place patient is planned for EGD and colonoscopy scheduled H&H remained stable. EGD showed mild gastritis. Colonoscopy showed diverticulosis with no signs of bleeding. Patient planned to have capsule endoscopy as outpatient basis. Okay per discharge per gastroenterology team. Near-syncope CT head was negative Acute blood loss. Hemoglobin down to 6.7. Baseline hemoglobin from October 2024 was 15. GI consulted for endoscopy evaluation received 1 unit of packed red blood cell. Repeat hemoglobin post transfusion was 8.1. H&H remains stable Continue to monitor H&H Hypertension Hyperlipidemia Coronary artery disease status post CABG in 2001 DVT prophylaxis SCDs Code status full code Time Spent with Patient Time attestation: Total time spent providing and/or coordinating discharge services: 45 minutes Exam Narrative: General: Nontoxic-appearing male sitting up in bed in no acute distress. HEENT: PERRL, EOMI. Sclera anicteric. Oral mucosa moist. Neck: Supple. Respiratory: Lungs are clear to auscultation bilaterally. Cardiovascular: Regular rate and rhythm with S1-S2. Gastrointestinal: Abdomen is soft, nontender, and nondistended with positive bowel sounds. No guarding or rebound tenderness. Skin: Warm and dry. Extremities: No cyanosis, clubbing, or edema. Radial pulses 2+. Pedal pulses diminished. Neurological: Alert. Cranial nerves grossly intact. No gross focal deficits to casual conversation. Psychiatric: Pleasant and cooperative with normal mood and affect. Judgment and insight intact. DS: Data Data Completed and Pending Pending studies at discharge: Pending at discharge 05/04/25 14:36 Surgical [PTH] Routine 05/04/25 14:50 Surgical [PTH] Routine Labs on day of discharge: Labs from last 24 hours 05/04/25 07:50 WBC 5.9 RBC 2.54 L Hgb 7.9 L Hct 24.6 L MCV 96.9 MCH 31.1 MCHC 32.1 RDW 16.2 H Plt Count 276 MPV 11.1 H Immature Gran % (Auto) 0.3 Neut % (Auto) 66.5 Lymph % (Auto) 21.4 [place] % (Auto) 8.8 H Eos % (Auto) 2.5 Baso % (Auto) 0.5 Lymph # (Auto) 1.27 [place] # (Auto) 0.5 Eos # (Auto) 0.2 Baso # (Auto) 0.0 Abs Immat Gran (auto) 0.02 Absolute Neuts (auto) 4.0 Absolute Nucleated RBC 0.000 Nucleated RBC % 0.0 Sodium 137 Potassium 4.6 Chloride 109 H Carbon Dioxide 26 Anion Gap 2 L BUN 15 D Creatinine 1.13 Estim Creat Clear Calc 49 Estimated GFR > 60 Glucose 86 Calcium 9.3 Magnesium 2.1 Total Bilirubin 0.8 AST 44 ALT 17 Alkaline Phosphatase 37 L Total Protein 5.0 L Albumin 2.6 L Discharge Plan Discharge Attending physician on discharge: Fortunato Suero Consulting providers: Ravi Singer Discharging Clinician: Fortunato Suero Anticipated Discharge Date/Time: 05/04/25 16:18 Patient Disposition: Home Activity: as tolerated Diet: heart healthy Discharge Instructions: Follow-up with GI to set up capsule endoscopy Patient Instructions: Antibiotic Form Patient Language: [place] Stand Alone Forms: General Discharge Information Follow-up/Referrals: Ravi Singer MD [Physician] - 2 Weeks Vanessa Ding DO [Primary Care Provider] - 1 Week Discharge Medications: New pantoprazole 40 mg Tablet,Delayed Release (Dr/Ec) 40 mg PO QAM Qty: 30 0RF Continued atorvastatin 80 mg tablet 80 mg PO HS fenofibrate nanocrystallized [[place]] 145 mg tablet 145 mg PO HS aspirin 81 mg tablet,delayed release (DR/EC) 81 mg PO DAILY Qty: 90 0RF lisinopril 40 mg tablet 40 mg PO DAILY Qty: 90 1RF metoprolol tartrate 100 mg tablet 100 mg PO BID Qty: 180 0RF Date of admission: 05/01/25 21:11 Primary Care Provider: Vanessa Ding Admitting Provider: Fam Bob Attending physician on admission: Fam Bob Condition: Stable
--- NOTE | 2025-05-05 08:41 | P.CDI_ITS ---
CDI Query Clarification Request BMI: 20.5 Nutritional Diagnostic Statement: Please refer to the comprehensive nutrition assessment for further information. If you agree with diagnosis of Moderate protein calorie malnutrition related to increased energy expenditure as evidenced by a significant weight loss of -10% x 5 months despite good intake and NFPE findings for moderate subcutaneous fat loss (cheeks) and moderate/severe muscle wasting (faith, clavicle, thigh, calf). Please specify severity if known: * Mild * Moderate * Severe * Other/Unknown <Lyndsay Simpson RN - Last Filed: 05/05/25 08:42> Provider Comments Moderate protein calorie malnutrition <Fortunato Suero MD - Last Filed: 05/15/25 07:17>
== END 2025-05-04 17:40 | disposition home or self-care (01) | DRG 378 ==
LOC: ANHED 21:14 → ANH3MEDSUR 22:41
PROVIDERS: Internal Medicine Gastroenterology; Physician Assistant; Admitting Provider Internal Medicine; Emergency Provider Emergency Medicine; PCP Family Medicine; Visit Provider Internal Medicine
PROC: 0DJ08ZZ Inspection of Upper Intestinal Tract, Via Natural or Artificial Opening Endoscopic (ICD-10-PCS; CPT 45378; principal; 2025-05-04 15:00)
DX: K92.2 Gastrointestinal hemorrhage, unspecified (principal); E44.0 Moderate protein-calorie malnutrition; R55 Syncope and collapse; D50.0 Iron deficiency anemia secondary to blood loss (chronic); K29.70 Gastritis, unspecified, without bleeding; K57.30 Diverticulosis of large intestine without perforation or abscess without bleeding; K63.5 Polyp of colon; I25.10 Atherosclerotic heart disease of native coronary artery without angina pectoris; I10 Essential (primary) hypertension; E78.2 Mixed hyperlipidemia; R63.4 Abnormal weight loss; Z95.1 Presence of aortocoronary bypass graft; Z90.49 Acquired absence of other specified parts of digestive tract; Z79.82 Long term (current) use of aspirin; Z68.20 Body mass index [BMI] 20.0-20.9, adult
CPT/HCPCS: 36415; 36430; 70450; 71045; 80053; 82948; 83605; 83735; 84484; 85014; 85018; 85025; 85027; 85610; 85730; 86850; 86900; 86901; 86923; 88305; 88342; 93005; 96360; 96361; 99285; A9270; J2003; J2470; J2704; J7050; J7120; P9016

== ENCOUNTER 2025-05-26 05:28 | Outpatient (CLI) | payer MEDICARE, SELFPAY ==
--- NOTE | 2025-05-26 07:07 | SUR.OPER ---
Patient brought to GI Lab. Instructions for patient undergoing Capsule Endoscopy reviewed with patient. Consent form signed. Sensor array applied to patient's abdomen and connected to recorded. Patient swallowed capsule with 2 cups of water infused with Simethicone. Patient instructed they may have clear liquids at 0830 this AM and eat or drink at 1030 this AM. Patient instructed to return to GI Lab at 1500 this afternoon for removal of recording device and to call [phone] or to return to the hospital if any nausea and vomiting or abdominal pain is experienced.
== END 2025-05-26 05:29 | disposition home or self-care (01) ==
PROVIDERS: PCP Family Medicine; Referring Provider Internal Medicine Gastroenterology; Visit Provider Internal Medicine Gastroenterology
PROC: 0DJ07ZZ Inspection of Upper Intestinal Tract, Via Natural or Artificial Opening (ICD-10-PCS; CPT 91110; principal; 2025-05-26 07:00)
DX: D64.9 Anemia, unspecified (principal)
CPT/HCPCS: 91110

== ENCOUNTER 2025-06-19 01:55 | Day surgery (SDC) | payer MEDICARE, SELFPAY ==
[2025-06-08 14:14] VITALS: BMI 21.8
[2025-06-19 12:31] VITALS: BP 237/111; PULSE 68; RESP 16; TEMP 36.8; O2SAT 97; BMI 21.6
--- NOTE | 2025-06-19 12:39 | WPDANESEPPF ---
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 Patient Data Age: 74 Gender: M Height: 1.83 m Weight: 72.2 kg Last Vital Signs Temp 36.8 C 06/19/25 12:31 Pulse 68 06/19/25 12:31 Resp 16 06/19/25 12:31 BP 237/111 H 06/19/25 12:31 Pulse Ox 97 06/19/25 12:31 O2 Del Method Room Air 06/19/25 12:31 Allergies Allergy/AdvReac Type Severity Reaction Status Date / Time ampicillin Allergy Unknown Unknown Verified 06/19/25 12:30 Home Medications ?Medication ?Instructions ?Recorded ?Confirmed ?Type aspirin 81 mg tablet,delayed 81 mg PO DAILY #90 tabs 01/06/20 06/19/25 Rx release pantoprazole 40 mg tablet,delayed 40 mg PO QAM #30 tabs 05/04/25 06/19/25 Rx release atorvastatin 80 mg tablet 80 mg PO HS #90 tabs 05/07/25 06/19/25 Rx fenofibrate nanocrystallized 145 145 mg PO HS #90 tabs 05/07/25 06/19/25 Rx mg tablet (Tricor) lisinopril 40 mg tablet 40 mg PO DAILY #90 tabs 05/07/25 06/19/25 Rx metoprolol tartrate 100 mg tablet 100 mg PO BID #180 tabs 05/07/25 06/19/25 Rx Patient hx anesthesia problems: none Family hx anesthesia problems: none Results Review: All pre-operative results and documents have been reviewed as part of the pre-operative evaluation. [facility], [facility] Past Medical History Medical History (Updated 06/04/25 @ 15:20 by Ravi Singer MD) AVM (arteriovenous malformation) of small bowel, acquired Weight loss Coronary artery disease Erectile dysfunction Essential (primary) hypertension Mixed hyperlipidemia Surgical History Surgical History History of cholecystectomy History of cardiac catheterization History of coronary artery stent placement History of coronary artery bypass graft x 2 (2001) Family History Family History Mother Hypertension Father Family history of heart disease in male family member before age 55 Social History Social History Social History: Surrogate medical decision maker: Corazon Mendes, spouse. Code status: Full code. Smoking status: Never smoker Second hand tobacco smoke exposure: No Alcohol intake: current Drinks per week: 10 Substance use: never Substance use type: does not use Do You Feel Safe in your Home?: Yes Lack of Transportation: No Lack of Food: Never True Current Housing: I Have Housing Concerned About Future Housing: No Difficulty Paying Gas/Electric Bills: No Difficulty Paying for Meds: No Currently Unemployed: No Education: Decline to Answer Difficulty w/ Childcare or Family Care: No Living arrangements: with family Additional living arrangements comments: . Lives in [place] with his . 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 Spiritual care concerns: No Anes - Eval Final PreProcedure Day of Procedure 06/19/25 12:39 Patient weight: normal Heart: regular rate and rhythm Lungs: clear to auscultation and normal air movement Airway: Mallampati scale class II Neurological: alert and oriented Last oral intake: >/= 8 hours ASA classification: III Emergent: no Anesthetic plan: proceed Anesthesia type and monitoring: general GIVS and standard monitoring Results Review: All pre-operative results and documents have been reviewed as part of the pre-operative evaluation. Informed Consent: The patient's anesthetic plan and its attendant risks and benefits were discussed with the patient/family/POA. Questions were solicited and answers provided to the satisfaction of the patient/family/POA.
[2025-06-19] MEDS: LACTATED RINGERS 1,000 ML 150 ML IV CONT (12:44)
--- NOTE | 2025-06-19 13:28 | P.HP_ITS ---
History of Present Illness History of Present Illness Consent: Risks, benefits, and alternatives have been discussed and questions answered. Patient agrees to proceed with procedure. Chief complaint: Angiodysplasia of colon without hemorrhage Narrative: Damien Mendes is a 74 year old male with anemia, negative egd and colonoscopy, then had SBCE and noted avm in proximal jejunum, here for push enteroscopy to attempt reaching site. Review of Systems Review of Systems: All systems reviewed & are unremarkable except as noted in HPI and below PMFSH Past Medical History Medical History (Updated 06/04/25 @ 15:20 by Ravi Singer MD) AVM (arteriovenous malformation) of small bowel, acquired Weight loss Coronary artery disease Erectile dysfunction Essential (primary) hypertension Mixed hyperlipidemia Surgical History Surgical History History of cholecystectomy History of cardiac catheterization History of coronary artery stent placement History of coronary artery bypass graft x 2 (2001) Family History Family History Mother Hypertension Father Family history of heart disease in male family member before age 55 Social History Social History Social History: Surrogate medical decision maker: Corazon Mendes, spouse. Code status: Full code. Smoking status: Never smoker Second hand tobacco smoke exposure: No Alcohol intake: current Drinks per week: 10 Substance use: never Substance use type: does not use Do You Feel Safe in your Home?: Yes Lack of Transportation: No Lack of Food: Never True Current Housing: I Have Housing Concerned About Future Housing: No Difficulty Paying Gas/Electric Bills: No Difficulty Paying for Meds: No Currently Unemployed: No Education: Decline to Answer Difficulty w/ Childcare or Family Care: No Living arrangements: with family Additional living arrangements comments: . Lives in [place] with his . 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 Spiritual care concerns: No Meds Home Medications and Allergies Home Medications ?Medication ?Instructions ?Recorded ?Confirmed ?Type aspirin 81 mg tablet,delayed 81 mg PO DAILY #90 tabs 0 01/06/20 06/19/25 Rx release pantoprazole 40 mg tablet,delayed 40 mg PO QAM #30 tab s 05/04/25 06/19/25 Rx release atorvastatin 80 mg tablet 80 mg PO HS #90 tabs 5 06/19/25 Rx fenofibrate nanocrystallized 145 145 mg PO HS #90 tabs 05/07/25 06/19/25 Rx mg tablet (Tricor) lisinopril 40 mg tablet 40 mg PO DAILY #90 tabs 04/2106/19/25 Rx metoprolol tartrate 100 mg tablet 100 mg PO BID #180 t abs 05/07/25 06/19/25 Rx Allergies Allergy/AdvReac Type Severity Reaction Status Date / Time ampicillin Allergy Unknown Unknown Verified 06/19/25 12:30 Vital Signs Vital Signs - 24 hr 06/19/25 12:31 Temperature 98.2 F Pulse Rate 68 Respiratory Rate 16 Blood Pressure 237/111 H Pulse Oximetry 97 Oxygen Delivery Room Air Exam Const: General: comfortable and no acute distress HENMT: Face/Nose/Sinus: Normal nares present Eyes: General: appearance normal, both eyes and all related structures Neck: Neck: no JVD Resp: Auscultation: clear to auscultation bilaterally Cardio: Rate: regular rate Rhythm: regular rhythm GI: Inspection: non-distended GI Palp: Yes Soft to palpation Skin: General skin exam: normal color Neuro: Speech: normal speech Extrem: General: normal to inspection Psych: Mental Status: mental status grossly normal Assessment and Plan Assessment and plan (1) AVM (arteriovenous malformation) of small bowel, acquired: Code(s): K55.20 - Angiodysplasia of colon without hemorrhage Status: Acute Assessment and Plan: egd with push enteroscopy
[2025-06-19 13:44] VITALS: BP 129/58; PULSE 81; RESP 33; O2SAT 94
[2025-06-19 13:54] VITALS: BP 135/65; PULSE 85; RESP 24; O2SAT 98
[2025-06-19 14:04] VITALS: BP 190/78; PULSE 69; RESP 22; O2SAT 100
== END 2025-06-19 14:15 | disposition home or self-care (01) ==
PROVIDERS: PCP Family Medicine; Visit Provider Internal Medicine Gastroenterology
PROC: 0DJ08ZZ Inspection of Upper Intestinal Tract, Via Natural or Artificial Opening Endoscopic (ICD-10-PCS; CPT 43235; principal; 2025-06-19 14:00)
DX: D64.9 Anemia, unspecified (principal)
CPT/HCPCS: 43235; J2704; J7120